=== PATIENT | male | born 1970 | race Caucasian/White ===

== ENCOUNTER 2017-05-17 10:47 | Inpatient (IN) | payer BC ==
[2017-05-17 11:35] LABS: ADD MAN DIFF? YES; BASO % 0 % (0-3); EOS % 0 % (0-3); HEMATOCRIT 39.8 % (39.0-53.0); HEMOGLOBIN 13.7 g/dL (13.0-17.5); LYMPH # 0.9 x10^3/uL (1.0-4.8); LYMPH % 9 % (24-48); MEAN CORPUSCULAR HEMOGLOBIN 29 pg (25-35); MEAN CORPUSCULAR HGB CONC 34 g/dL (31-37); MEAN CORPUSCULAR VOLUME 84 fL (79-100); MONO # 0.5 x10^3/uL (0.0-1.1); MONO % 5 % (0-9); NEUT # 8.9 x10^3uL (1.8-7.7); NEUT % 86 % (31-73); PLATELET COUNT 211 x10^3/uL (140-400); RED BLOOD COUNT 4.77 x10^6/uL (4.30-5.70); RED CELL DISTRIBUTION WIDTH 13.5 % (11.5-14.5); WHITE BLOOD COUNT 10.3 x10^3/uL (4.0-11.0)
[2017-05-17 11:42] LABS: ANION GAP 12 (6-14); BLOOD UREA NITROGEN 13 mg/dL (8-26); CALCIUM 8.8 mg/dL (8.5-10.1); CARBON DIOXIDE 22 mmol/L (21-32); CHLORIDE 102 mmol/L (98-107); CREATININE 1.2 mg/dL (0.7-1.3); GFR 65.5; GLUCOSE 116 mg/dL (70-99); SODIUM 136 mmol/L (136-145)
[2017-05-17 11:47] LABS: INR 1.1 (0.8-1.1); PARTIAL THROMBOPLASTIN TIME 27 SEC (24-38); PROTHROMBIN TIME PATIENT 13.3 SEC (11.7-14.0)
[2017-05-17 11:48] LABS: ALBUMIN 3.5 g/dL (3.4-5.0); ALK PHOS 122 U/L (46-116); ALT (SGPT) 36 U/L (16-63); AST (SGOT) 31 U/L (15-37); DIRECT BILIRUBIN 0.1 mg/dL (0.0-0.2); LIPASE 131 U/L (73-393); TOTAL BILIRUBIN 0.5 mg/dL (0.2-1.0); TOTAL PROTEIN 7.3 g/dL (6.4-8.2)
[2017-05-17 11:50] LABS: TROPONINI < 0.017 ng/mL (0.000-0.055)
[2017-05-17 11:53] LABS: NT-PRO BNP 18 pg/mL (0-124)
[2017-05-17] MEDS ORDERED: NITROGLYCERIN SUBLINGUAL 0.4 MG BOTTLE OF 25. SL (12:45)
[2017-05-17] MEDS ORDERED: ONDANSETRON PF 4 MG/2 ML VIAL. IV (12:45)
[2017-05-17] MEDS ORDERED: MORPHINE SULFATE 4 MG/ML DISP.SYRIN. IV (12:45)
[2017-05-17 13:24] LABS: % BANDS 19 % (0-9); % LYMPHS 8 % (24-48); % MONOS 2 % (0-10); % SEGS 71 % (35-66); PLT ESTIMATE ADEQUATE (ADEQUATE)
[2017-05-17 14:23] LABS: THYROID STIM HORMONE (TSH) 1.399 uIU/mL (0.358-3.74)
[2017-05-17] MEDS: diphenhydrAMINE HCL 25 MG CAPSULE PO (17:42)
[2017-05-17] MEDS: PANTOPRAZOLE 40 MG TABLET.DR. PO (17:45)
[2017-05-17] MEDS: ENOXAPARIN 40 MG/0.4 ML SYRINGE. SQ (17:45)
[2017-05-17] MEDS: hydrOXYzine PAMOATE 25 MG CAPSULE PO (20:23)
[2017-05-17] MEDS: SMZ/TMP 800/160MG TABLET. PO (20:23)
[2017-05-17] MEDS: ACETAMINOPHEN 325 MG TABLET. PO (20:23)
[2017-05-17 20:45] LABS: INFLUENZA A PATIENT NEGATIVE (NEGATIVE); INFLUENZA B PATIENT NEGATIVE (NEGATIVE); OBC FLU VALID
[2017-05-17] MEDS: LORazepam 0.5 MG TABLET PO (22:09)
[2017-05-18 04:34] LABS: ADD MAN DIFF? NO
[2017-05-18 04:36] LABS: BASO % 0 % (0-3); EOS % 1 % (0-3); HEMATOCRIT 39.9 % (39.0-53.0); HEMOGLOBIN 13.8 g/dL (13.0-17.5); LYMPH # 1.3 x10^3/uL (1.0-4.8); LYMPH % 17 % (24-48); MEAN CORPUSCULAR HEMOGLOBIN 29 pg (25-35); MEAN CORPUSCULAR HGB CONC 35 g/dL (31-37); MEAN CORPUSCULAR VOLUME 84 fL (79-100); MONO # 0.3 x10^3/uL (0.0-1.1); MONO % 4 % (0-9); NEUT # 6.1 x10^3uL (1.8-7.7); NEUT % 78 % (31-73); PLATELET COUNT 202 x10^3/uL (140-400); RED BLOOD COUNT 4.77 x10^6/uL (4.30-5.70); RED CELL DISTRIBUTION WIDTH 13.6 % (11.5-14.5); WHITE BLOOD COUNT 7.8 x10^3/uL (4.0-11.0)
[2017-05-18 05:09] LABS: TROPONINI < 0.017 ng/mL (0.000-0.055)
[2017-05-18 06:18] LABS: ALBUMIN 3.3 g/dL (3.4-5.0); ALBUMIN/GLOBULIN RATIO 0.8 (1.0-1.7); ALK PHOS 113 U/L (46-116); ALT (SGPT) 31 U/L (16-63); ANION GAP 13 (6-14); AST (SGOT) 22 U/L (15-37); BLOOD UREA NITROGEN 13 mg/dL (8-26); BUN/CREATININE RATIO 10 (6-20); CALCIUM 8.6 mg/dL (8.5-10.1); CARBON DIOXIDE 22 mmol/L (21-32); CHLORIDE 102 mmol/L (98-107); CHOLESTEROL 127 mg/dL (0-200); CHOLESTEROL/HDL RATIO 3.5; CREATININE 1.3 mg/dL (0.7-1.3); GFR 59.7; GLUCOSE 120 mg/dL (70-99); HDLC 36 mg/dL (40-60); LDLC 71 mg/dL (0-100); NON-HDL CHOLESTEROL 91 mg/dL (0-129); POTASSIUM 3.8 mmol/L (3.5-5.1); SODIUM 137 mmol/L (136-145); TOTAL BILIRUBIN 0.6 mg/dL (0.2-1.0); TOTAL PROTEIN 7.2 g/dL (6.4-8.2); TRIGLYCERIDES 102 mg/dL (0-150); VLDLC 20 mg/dL (0-40)
[2017-05-18] MEDS: PANTOPRAZOLE 40 MG TABLET.DR. PO (08:51)
[2017-05-18] MEDS: LORazepam 0.5 MG TABLET PO (08:51)
[2017-05-18] MEDS ORDERED: diphenhydrAMINE HCL 25 MG CAPSULE PO (13:15)
[2017-05-18] MEDS: REGADENOSON 0.4 MG/5 ML DISP.SYRIN. IV (13:16)
[2017-05-18] MEDS: SMZ/TMP 800/160MG TABLET. PO (14:02)
[2017-05-18] MEDS: FLUoxetine HCL 10 MG CAPSULE PO (14:02)
[2017-05-18] MEDS: hydrOXYzine PAMOATE 25 MG CAPSULE PO (14:07)
[2017-05-18] MEDS: ENOXAPARIN 40 MG/0.4 ML SYRINGE. SQ (18:00)
== END 2017-05-18 19:48 | disposition home or self-care (01) | DRG 880 ==
LOC: ER 10:47 → ED HOLD 12:12 → 6 SOUTH 16:28
DX: F41.9 Anxiety disorder, unspecified (principal); F32.9 Major depressive disorder, single episode, unspecified; R07.89 Other chest pain; F90.9 Attention-deficit hyperactivity disorder, unspecified type; K21.9 Gastro-esophageal reflux disease without esophagitis; M54.5 Low back pain; Z79.899 Other long term (current) drug therapy; Z82.49 Family history of ischemic heart disease and other diseases of the circulatory system
CPT/HCPCS: 36415; 71045; 78452; 80048; 80053; 80061; 80076; 83690; 83880; 84443; 84484; 85007; 85025; 85610; 85730; 87804; 87804-59; 93005; 93017; 93306; 96374; 96375; 96376; 99285; 99285-25; A9500; J2060; J2785; Q0163; Q0177